=== PATIENT | male | born 1985 | race Two or more races ===

== ENCOUNTER 2020-07-20 05:54 | Emergency (ER) | payer BC ==
[~2020-07-20] VITALS: Ht 180.3 cm; Wt 71.2 kg
[2020-07-20] MEDS ORDERED: MURINE EAR WAX15 ML OT (08:48)
== END 2020-07-20 09:10 ==
LOC: ER 05:54
DX: H92.02 Otalgia, left ear (principal); H61.22 Impacted cerumen, left ear